=== PATIENT | female | born 1930 | race Caucasian/White ===

== ENCOUNTER 2016-05-24 11:50 | Inpatient (IN) | payer OTHER ==
[2016-05-24 12:03] VITALS: BMI 29.0
[2016-05-24 13:10] LABS: CALCIUM 9.2 mg/dL (8.5-10.1); CREATININE 1.83 mg/dL (0.55-1.02)
[2016-05-24 13:15] LABS: ALBUMIN 3.1 g/dL (3.4-5.0); BASOPHILS # (AUTO) 0.1 X10^3/uL (0.0-0.1); BASOPHILS % (AUTO) 0.4 % (0.2-1.0); COR CA(FOR HYPOALB) 9.9 mg/dL (8.5-10.1); EOSINOPHILS # (AUTO) 0.2 x10^3/uL (0.0-0.2); EOSINOPHILS % (AUTO) 0.8 % (0.9-2.9); HEMATOCRIT 30.9 % (36.0-47.0); HEMOGLOBIN 10.3 g/dL (12.0-16.0); LYMPHOCYTES # (AUTO) 1.4 X10^3/uL (1.3-2.9); MEAN CORPUSCULAR HEMOGLOBIN 28.9 pg (27.0-34.0); MEAN CORPUSCULAR HGB CONC 33.4 g/dL (33.0-35.0); MEAN CORPUSCULAR VOLUME 86.3 fL (80.0-100.0); MEAN PLATELET VOLUME 8.6 fL (7.4-11.0); MONOCYTES # (AUTO) 1.8 x10^3/uL (0.3-0.8); MONOCYTES % (AUTO) 6.4 % (0.0-13.0); NEUTROPHILS # (AUTO) 25.1 x10^3/uL (2.2-4.8); NEUTROPHILS % (AUTO) 87.4 % (42.0-75.0); PLATELET COUNT 336 X10^3/uL (150.0-450.0); RED BLOOD COUNT 3.58 X10^6/uL (3.5-5.4); RED CELL DISTRIBUTION WIDTH 13.7 % (11.6-16.5); TOTAL PROTEIN 7.5 g/dL (6.4-8.2)
[2016-05-24] MEDS ORDERED: DUONEB 0.5 MG/3 MG ONE (13:22)
[2016-05-24 13:25] LABS: WHITE BLOOD COUNT 28.8 X10^3/uL (3.6-10.0)
[2016-05-24 13:26] LABS: BAND NEUTROPHILS % 11 % (0-10); PLATELET MORPHOLOGY COMMENT NORMAL (NORMAL)
--- NOTE | 2016-05-24 13:28 | DR.GENAD ---
HPI - PCP Primary Care Physician: MARGO TSANG - HPI Comment HPI Comment: HISTORY BELOW. - Complaint/Symptoms Chief Complaint Doctors Comments: PATIENT HAVE COUGH, CONGESTION, RESPIRATORY DISTRESS AND FEVER ON AND OFF FOR 3 WEEKS. CURRENTLY ON AUGMENTIN AND TESSALON PERLES BUT SYMTOMS GETTING WORSE. Chief Complaint:: C/C/C, WEAKNESS X 3 WEEKS, DIARRHEA - Nurses notes reviewed Nurses Notes Review: Yes - Source History Provided: Patient - Mode of Arrival Mode of Arrival: Ambulatory - Timing Onset of Chief Complaint: 05/03/16 Came on: Gradually - Duration Duration: Constant Duration: Days PMH - PMH Past Medical History: Yes Past Medical History: Diabetes, Dyslipidemia, Hypertension Past Surgical History: Yes Surgical History: Appendectomy, Cholecystectomy, Hysterectomy Past Surgical History Comment: PACEMAKER - Family History History of Family Medical Conditions: Yes Family Medical History: Diabetes Mellitus, Hypertension - Social History Does patient currently use any type of tobacco product: No Have you used tobacco products in the last 12 months: No Type of Tobacco Use: None Does any household member use tobacco: No Alcohol Use: None Do you use any recreational Drugs:: No Lives With: Family Lives Where: Home - infectious screening In the last 2 months have you had wt loss of >10#?: NO Have you had fever, night sweats or hemotysis?: No Have you traveled outside the country in the last 6 months?: No Isolation: Standard ROS - Review of Systems Constitutional: Chills, Fever, Weakness, Fatigue Eyes: No Symptoms Reported. negative: Eye Pain, Discharge ENTM: Nose Discharge, Nose Congestion. negative: Ear Pain, Throat Pain Respiratoy: Productive Cough, Short of Breath, Wheezing. negative: Hemoptysis Cardiovascular: Chest Pain Gastrointestinal/Abdominal: No Symptoms Reported Genitourinary: No Symptoms Reported Neurological: Headache, Weakness, Dizziness Musculoskeletal: Muscle Pain Integumentary: No Symptoms Reported Hematologic/Lymphatic: No Symptoms Reported Endocrine: No Symptoms Reported All Other Systems: Reviewed and Negative PE - Vital Signs Vitals: Temperature 98.0 F Pulse Rate 66 Respiratory Rate 16 Blood Pressure 129/80 O2 Sat by Pulse Oximetry 95 - General Limitations: No Limitations General Appearance: Alert - Head Head Exam: Normal Inspection - Eyes Eye exam: Normal Appearance - ENT ENT Exam: Normal External Ear Exam External Ear Exam: Normal External Inspection TM/Canal Exam: Bilateral Normal Nose Exam: Normal Nose Exam Mouth Exam: Normal Inspection Throat Exam: Normal Inspection - Neck Neck Exam: Normal Inspection - Chest Chest Inspection: Symmetric Chest Wall Rise - Respiratory Respiratory Exam: Respiratory Distress Respiratory Exam: Bilateral Wheezing, Bilateral Rales, Bilateral Rhonchi, Upper Rhonchi, Lower Wheezing, Lower Rales, Lower Rhonchi - Cardiovascular Cardiovascular Exam: Regular Rate, Normal Rhythm, Normal Heart Sounds - Abdominal Exam Abdominal Exam: Normal Bowel Sounds, Soft. negative: Tenderness - Extremities Extremities Exam: Normal Inspection - Back Back Exam: Normal Inspection - Neurologic Neurological Exam: Alert, Oriented X3, CN II-XII Intact, Reflexes Normal. negative: Motor Sensory Deficit - Psychiatric Psychiatric Exam: Anxious - Skin Skin Exam: Normal Color MDM - Differential Diagnosis Differential Diagnosis: RESPIRATORY DISTRESS PNEUMONIA, BRONCHITIS Course - Treatment Treatment: SEE ORDERS - Consultation Consultation Comments: DISCUSS PATIENT WITH DR. HUBBARD. HE WILL ADMIT PATIENT. - Education/Counseling Education/Counseling: Patient, Education Educated On: Treatment, Diagnosis ROR - Labs Reviewed Laboratory Results Reviewed?: Yes Result Diagrams: 05/24/16 12:55 05/24/16 12:55 Laboratory: Sodium 126 mmol/L (136-145) L 05/24/16 12:55 Corrected Sodium 131 mmol/L (136-145) L 05/24/16 12:55 Potassium 4.6 mmol/L (3.5-5.1) 05/24/16 12:55 Chloride 89 mmol/L (98-107) L 05/24/16 12:55 Carbon Dioxide 26.0 mmol/L (21-32) 05/24/16 12:55 BUN 44 mg/dL (7-18) H 05/24/16 12:55 Creatinine 1.83 mg/dL (0.55-1.02) H 05/24/16 12:55 Est GFR (MDRD) Af Amer 34 (>60) L 05/24/16 12:55 Est GFR (MDRD) Non-Af 28 (>60) L 05/24/16 12:55 Glucose 317 mg/dL (65-99) H 05/24/16 12:55 Calcium 9.2 mg/dL (8.5-10.1) 05/24/16 12:55 Corrected Calcium 9.9 mg/dL (8.5-10.1) 05/24/16 12:55 Total Bilirubin 0.80 mg/dL (0.2-1.0) 05/24/16 12:55 AST 29 Units/L (15-37) 05/24/16 12:55 ALT 30 Units/L (12-78) 05/24/16 12:55 Alkaline Phosphatase 130 Units/L (46-116) H 05/24/16 12:55 Total Protein 7.5 g/dL (6.4-8.2) 05/24/16 12:55 Albumin 3.1 g/dL (3.4-5.0) L 05/24/16 12:55 Globulin 4.4 g/dL (2.5-4.5) 05/24/16 12:55 Albumin/Globulin Ratio 0.7 Ratio (1.1-2.1) L 05/24/16 12:55 - XRAY XRAY Interpreted by: Radiologist XRAY Findings: REPORT DISCUSS WITH PATIENT. - EKG Rhythm: NSR (EKG NOTED) - Diagnosis Discharge Problem: Pneumonia of both lower lobes, Respiratory distress - Discharge Plan Disposition: ADMITTED INPATIENT Condition: Stable - Follow ups/Referrals - Instructions
--- NOTE | 2016-05-24 13:45 | RAD ---
HISTORY: Cough, cold, congestion Study: Two view chest Comparison: None Findings: There are hazy bibasilar lower lobe opacities. No effusion or pneumothorax. The cardiac and mediasti nal contours are within normal limits. The soft tissues are unremarkable. There is a dual chamber p acemaker in place. IMPRESSION: 1. Bibasilar infiltrates that may represent pneumonia in the appropriate clinical setting. Reported By:
[2016-05-24] MEDS ORDERED: DUONEB 0.5 MG/3 MG NEB ONE (13:53)
[2016-05-24 14:04] LABS: B-TYPE NATRIURETIC PEPTIDE 325 pg/mL (0-79)
[2016-05-24] MEDS ORDERED: ROCEPHIN VIAL 1 GM ONE (14:06)
[2016-05-24] MEDS ORDERED: NS 50 ML IV + SPIKE MINIBAG* 50 ML IV ONE (14:06)
[2016-05-24] MEDS ORDERED: NS 1/2 1000 ML IV 1,000 ML IV ONE (14:06)
[2016-05-24] MEDS: NS 1/2 1000 ML IV 1,000 ML IV SCH (14:14)
[2016-05-24] MEDS: ROCEPHIN VIAL 1 GM 1 GM in NS 50 ML IV + SPIKE MINIBAG* 50 ML IV ONE ×2 (14:14→14:18)
[2016-05-24 14:25] LABS: CKMB % 3.6 % (<4); CREATINE KINASE 267 Units/L (26-192); TROPONIN I < 0.02 ng/mL (0-1.5)
[2016-05-24 14:27] LABS: CREATINE KINASE MB 9.5 ng/mL (0-4.0)
[2016-05-24] MEDS: DUONEB 0.5 MG/3 MG NEB SCH ×2 (16:35→20:20)
[2016-05-24 16:54] LABS: BILIRUBIN,URINE NEGATIVE (NEGATIVE); BLOOD/HEMOGLOBIN,URINE NEGATIVE (NEGATIVE); GLUCOSE, URINE NEGATIVE (NEGATIVE); KETONES,URINE 1+ (NEGATIVE); LEUKOCYTE ESTERASE ,URINE 1+ (NEGATIVE); NITRITES,URINE NEGATIVE (NEGATIVE); PROTEIN,URINE 2+ (NEGATIVE); UROBILINOGEN,URINE 1+ (NORMAL)
[2016-05-24 17:07] LABS: APPEARANCE,URINE HAZY (CLEAR); BACTERIA,URINE TRACE /HPF (NEGATIVE); COLOR,URINE YELLOW (YELLOW); RBC,URINE 0-2 /HPF (NEGATIVE); SQUAMOUS EPITHELIAL CELL,UR FEW /HPF (NEGATIVE)
[2016-05-24] MEDS: ROBITUSSIN DM PO SCH ×2 (17:12→20:52)
[2016-05-24] MEDS: HUMULIN R SC PRN ×2 (17:44→20:52)
[2016-05-24] MEDS ORDERED: MAALOX or MYLANTA PO PRN (20:09)
[2016-05-24] MEDS: LEVEMIR SC SCH (20:14)
[2016-05-24] MEDS: SNACK - Diabetic Appropriate PO SCH (20:14)
[2016-05-24] MEDS: LOVAZA PO SCH (20:59)
[2016-05-24] MEDS ORDERED: [UNRECOGNIZED DRUG - OTHER] PO SCH (22:00)
[2016-05-25] MEDS: DUONEB 0.5 MG/3 MG NEB SCH ×6 (00:37→20:37)
[2016-05-25] MEDS ORDERED: NS 1/2 1000 ML IV 1,000 ML IV ONE (01:28)
[2016-05-25] MEDS: NS 1/2 1000 ML IV 1,000 ML IV SCH (02:29)
[2016-05-25] MEDS: LOVAZA PO SCH ×3 (05:50→21:23)
[2016-05-25] MEDS: HUMULIN R SC PRN ×4 (05:53→21:25)
[2016-05-25 06:21] LABS: ALBUMIN 2.4 g/dL (3.4-5.0); CALCIUM 8.5 mg/dL (8.5-10.1); CARBON DIOXIDE 22.3 mmol/L (21-32); COR CA(FOR HYPOALB) 9.8 mg/dL (8.5-10.1); CREATININE 1.8 mg/dL (0.55-1.02); TOTAL PROTEIN 6.5 g/dL (6.4-8.2)
[2016-05-25 06:23] LABS: BASOPHILS # (AUTO) 0.1 X10^3/uL (0.0-0.1); BASOPHILS % (AUTO) 0.4 % (0.2-1.0); EOSINOPHILS # (AUTO) 0.3 x10^3/uL (0.0-0.2); EOSINOPHILS % (AUTO) 1.2 % (0.9-2.9); HEMATOCRIT 28.4 % (36.0-47.0); HEMOGLOBIN 9.3 g/dL (12.0-16.0); LYMPHOCYTES # (AUTO) 2.3 X10^3/uL (1.3-2.9); LYMPHOCYTES % (AUTO) 8.6 % (21.0-51.0); MEAN CORPUSCULAR HEMOGLOBIN 28.8 pg (27.0-34.0); MEAN CORPUSCULAR HGB CONC 32.9 g/dL (33.0-35.0); MEAN CORPUSCULAR VOLUME 87.6 fL (80.0-100.0); MEAN PLATELET VOLUME 8.7 fL (7.4-11.0); MONOCYTES % (AUTO) 7.5 % (0.0-13.0); NEUTROPHILS # (AUTO) 21.6 x10^3/uL (2.2-4.8); NEUTROPHILS % (AUTO) 82.3 % (42.0-75.0); PLATELET COUNT 302 X10^3/uL (150.0-450.0); RED BLOOD COUNT 3.24 X10^6/uL (3.5-5.4); RED CELL DISTRIBUTION WIDTH 13.3 % (11.6-16.5)
[2016-05-25 06:32] LABS: WHITE BLOOD COUNT 26.2 X10^3/uL (3.6-10.0)
[2016-05-25 06:42] LABS: BAND NEUTROPHILS % 7 % (0-10)
[2016-05-25 06:43] LABS: PLATELET MORPHOLOGY COMMENT NORMAL (NORMAL)
[2016-05-25] MEDS: ROBITUSSIN DM PO SCH ×5 (08:48→21:23)
[2016-05-25] MEDS: VITAMIN C PO SCH (08:49)
[2016-05-25] MEDS: NORVASC TAB 5 MG PO SCH (08:49)
[2016-05-25] MEDS ORDERED: TYGACIL 50 MG VIAL 50 MG in NS 100 ML IV 100 ML IV SCH (09:00)
[2016-05-25] MEDS ORDERED: ROCEPHIN VIAL 1 GM 1 GM in NS 50 ML IV + SPIKE MINIBAG* 50 ML IV SCH (09:00)
[2016-05-25] MEDS ORDERED: TYGACIL 50 MG VIAL 100 MG in NS 100 ML IV 100 ML IV ONE (09:42)
[2016-05-25] MEDS ORDERED: [UNRECOGNIZED DRUG - OTHER] PO SCH (09:45)
[2016-05-25] MEDS ORDERED: LOMOTIL PO PRN (09:55)
[2016-05-25] MEDS: NS 1000 ML 1,000 ML IV SCH ×3 (10:30→21:21)
[2016-05-25] MEDS: ASPIRIN EC 81 MG PO SCH (11:26)
[2016-05-25] MEDS: SNACK - Diabetic Appropriate PO SCH (20:40)
[2016-05-25] MEDS: FLONASE NASAL SPRAY ENOSTRIL SCH (21:19)
[2016-05-25] MEDS: LEVEMIR SC SCH (21:23)
[2016-05-25] MEDS: TYGACIL 50 MG VIAL 50 MG in NS 100 ML IV 100 ML IV SCH (21:25)
[2016-05-25] MEDS: TUSSIONEX PENNKINETIC SUSP PO PRN (23:16)
[2016-05-26] MEDS: DUONEB 0.5 MG/3 MG NEB SCH ×6 (01:29→20:19)
[2016-05-26] MEDS: NS 1000 ML 1,000 ML IV SCH ×4 (03:23→15:08)
[2016-05-26] MEDS: LOVAZA PO SCH ×3 (05:14→21:20)
[2016-05-26 06:27] LABS: ALBUMIN 2.2 g/dL (3.4-5.0); CARBON DIOXIDE 21.1 mmol/L (21-32); COR CA(FOR HYPOALB) 9.4 mg/dL (8.5-10.1); CREATININE 1.18 mg/dL (0.55-1.02)
[2016-05-26 06:33] LABS: BASOPHILS # (AUTO) 0.2 X10^3/uL (0.0-0.1); BASOPHILS % (AUTO) 0.7 % (0.2-1.0); EOSINOPHILS # (AUTO) 0.6 x10^3/uL (0.0-0.2); EOSINOPHILS % (AUTO) 2.7 % (0.9-2.9); HEMATOCRIT 28.2 % (36.0-47.0); HEMOGLOBIN 9.4 g/dL (12.0-16.0); LYMPHOCYTES # (AUTO) 2.1 X10^3/uL (1.3-2.9); LYMPHOCYTES % (AUTO) 9.9 % (21.0-51.0); MEAN CORPUSCULAR HEMOGLOBIN 28.8 pg (27.0-34.0); MEAN CORPUSCULAR HGB CONC 33.4 g/dL (33.0-35.0); MEAN CORPUSCULAR VOLUME 86.1 fL (80.0-100.0); MEAN PLATELET VOLUME 8.4 fL (7.4-11.0); MONOCYTES % (AUTO) 9.1 % (0.0-13.0); NEUTROPHILS # (AUTO) 16.8 x10^3/uL (2.2-4.8); NEUTROPHILS % (AUTO) 77.6 % (42.0-75.0); PLATELET COUNT 332 X10^3/uL (150.0-450.0); RED BLOOD COUNT 3.27 X10^6/uL (3.5-5.4)
[2016-05-26 06:44] LABS: WHITE BLOOD COUNT 21.6 X10^3/uL (3.6-10.0)
[2016-05-26 07:41] LABS: BAND NEUTROPHILS % 8 % (0-10); PLATELET MORPHOLOGY COMMENT NORMAL (NORMAL)
--- NOTE | 2016-05-26 08:35 | RAD ---
HISTORY: Pneumonia Study: Two view chest Comparison: 05/24/2016 Findings: There are persistent bibasilar alveolar infiltrates. No pneumothorax or pleural effusion. Stable pac emaker. The cardiac and mediastinal contours are within normal limits. The soft tissues are unremar kable. IMPRESSION: 1. Persistent bibasilar alveolar infiltrates suggestive of pneumonia. Reported By:
[2016-05-26] MEDS: TYGACIL 50 MG VIAL 50 MG in NS 100 ML IV 100 ML IV SCH ×2 (08:56→21:21)
[2016-05-26] MEDS: NORVASC TAB 5 MG PO SCH (08:57)
[2016-05-26] MEDS: VITAMIN C PO SCH (08:57)
[2016-05-26] MEDS: ROBITUSSIN DM PO SCH ×4 (08:57→21:21)
[2016-05-26] MEDS: ASPIRIN EC 81 MG PO SCH (08:57)
[2016-05-26] MEDS: FLONASE NASAL SPRAY ENOSTRIL SCH ×2 (08:59→21:22)
[2016-05-26] MEDS ORDERED: TORADOL 30 MG VIAL IVP PRN (09:39)
[2016-05-26] MEDS: ZANTAC PO SCH ×2 (10:42→21:21)
[2016-05-26] MEDS: HYZAAR 50/12.5 MG PO SCH (11:53)
[2016-05-26] MEDS: HUMULIN R SC PRN ×2 (12:06→21:23)
[2016-05-26] MEDS: SNACK - Diabetic Appropriate PO SCH (20:25)
[2016-05-26] MEDS: LEVEMIR SC SCH (21:22)
[2016-05-27] MEDS: DUONEB 0.5 MG/3 MG NEB SCH ×6 (00:33→21:10)
[2016-05-27] MEDS: NS 1000 ML 1,000 ML IV SCH ×4 (05:13→17:13)
[2016-05-27] MEDS: LOVAZA PO SCH ×4 (05:15→20:59)
[2016-05-27] MEDS: TUSSIONEX PENNKINETIC SUSP PO PRN (05:50)
[2016-05-27 06:06] LABS: BASOPHILS # (AUTO) 0.2 X10^3/uL (0.0-0.1); EOSINOPHILS # (AUTO) 0.6 x10^3/uL (0.0-0.2); EOSINOPHILS % (AUTO) 3.7 % (0.9-2.9); HEMATOCRIT 26.9 % (36.0-47.0); HEMOGLOBIN 9.1 g/dL (12.0-16.0); LYMPHOCYTES % (AUTO) 12.7 % (21.0-51.0); MEAN CORPUSCULAR HEMOGLOBIN 29.1 pg (27.0-34.0); MEAN CORPUSCULAR HGB CONC 33.9 g/dL (33.0-35.0); MEAN CORPUSCULAR VOLUME 85.7 fL (80.0-100.0); MEAN PLATELET VOLUME 8.3 fL (7.4-11.0); MONOCYTES # (AUTO) 1.6 x10^3/uL (0.3-0.8); MONOCYTES % (AUTO) 10.2 % (0.0-13.0); NEUTROPHILS # (AUTO) 11.6 x10^3/uL (2.2-4.8); NEUTROPHILS % (AUTO) 72.4 % (42.0-75.0); PLATELET COUNT 348 X10^3/uL (150.0-450.0); RED BLOOD COUNT 3.14 X10^6/uL (3.5-5.4); RED CELL DISTRIBUTION WIDTH 14.2 % (11.6-16.5)
[2016-05-27] MEDS ORDERED: VANCOMYCIN HCL 1 GM VIAL ONE (07:19)
[2016-05-27] MEDS ORDERED: NS 250 ML IV 250 ML IV ONE (07:19)
[2016-05-27] MEDS ORDERED: VANCOMYCIN HCL 500 MG VIAL ONE (07:19)
[2016-05-27 07:26] LABS: ALBUMIN 2.2 g/dL (3.4-5.0); CALCIUM 8.1 mg/dL (8.5-10.1); CARBON DIOXIDE 19.7 mmol/L (21-32); COR CA(FOR HYPOALB) 9.5 mg/dL (8.5-10.1); CREATININE 1.15 mg/dL (0.55-1.02); TOTAL PROTEIN 5.8 g/dL (6.4-8.2)
[2016-05-27 07:44] LABS: BAND NEUTROPHILS % 13 % (0-10); METAMYELOCYTES % 1
[2016-05-27 07:45] LABS: PLATELET MORPHOLOGY COMMENT NORMAL (NORMAL)
[2016-05-27] MEDS: TYGACIL 50 MG VIAL 50 MG in NS 100 ML IV 100 ML IV SCH ×2 (09:18→20:52)
[2016-05-27] MEDS: HYZAAR 50/12.5 MG PO SCH (09:19)
[2016-05-27] MEDS: ROBITUSSIN DM PO SCH ×4 (09:19→20:54)
[2016-05-27] MEDS: VITAMIN C PO SCH (09:19)
[2016-05-27] MEDS: ALBUMIN HUMAN 25%- 100ML 100 ML IV SCH (09:19)
[2016-05-27] MEDS: NORVASC TAB 5 MG PO SCH (09:20)
[2016-05-27] MEDS: FLONASE NASAL SPRAY ENOSTRIL SCH ×2 (09:20→20:56)
[2016-05-27] MEDS: ASPIRIN EC 81 MG PO SCH (09:20)
[2016-05-27] MEDS: ZANTAC PO SCH ×2 (09:20→20:54)
[2016-05-27] MEDS: HUMULIN R SC PRN ×2 (17:08→20:55)
[2016-05-27] MEDS: SNACK - Diabetic Appropriate PO SCH (20:12)
[2016-05-27] MEDS: LEVEMIR SC SCH (20:55)
[2016-05-28] MEDS: NS 1000 ML 1,000 ML IV SCH ×6 (00:06→22:11)
[2016-05-28] MEDS: DUONEB 0.5 MG/3 MG NEB SCH ×7 (01:29→21:11)
[2016-05-28 05:30] LABS: BASOPHILS # (AUTO) 0.1 X10^3/uL (0.0-0.1); BASOPHILS % (AUTO) 0.9 % (0.2-1.0); EOSINOPHILS # (AUTO) 0.8 x10^3/uL (0.0-0.2); HEMATOCRIT 25.1 % (36.0-47.0); HEMOGLOBIN 8.7 g/dL (12.0-16.0); LYMPHOCYTES % (AUTO) 14.1 % (21.0-51.0); MEAN CORPUSCULAR HEMOGLOBIN 29.4 pg (27.0-34.0); MEAN CORPUSCULAR HGB CONC 34.5 g/dL (33.0-35.0); MEAN CORPUSCULAR VOLUME 85.3 fL (80.0-100.0); MEAN PLATELET VOLUME 8.1 fL (7.4-11.0); MONOCYTES # (AUTO) 1.4 x10^3/uL (0.3-0.8); MONOCYTES % (AUTO) 10.3 % (0.0-13.0); NEUTROPHILS # (AUTO) 9.5 x10^3/uL (2.2-4.8); NEUTROPHILS % (AUTO) 68.7 % (42.0-75.0); PLATELET COUNT 306 X10^3/uL (150.0-450.0); RED BLOOD COUNT 2.94 X10^6/uL (3.5-5.4); RED CELL DISTRIBUTION WIDTH 13.8 % (11.6-16.5); WHITE BLOOD COUNT 13.8 X10^3/uL (3.6-10.0)
[2016-05-28 05:37] LABS: ALANINE AMINOTRANSFERASE 30 Units/L (12-78); ALBUMIN 2.4 g/dL (3.4-5.0); ALKALINE PHOSPHATASE 113 Units/L (46-116); ASPARTATE AMINO TRANSFERASE 30 Units/L (15-37); BLOOD UREA NITROGEN 32 mg/dL (7-18); CALCIUM 8.1 mg/dL (8.5-10.1); CARBON DIOXIDE 20.6 mmol/L (21-32); CHLORIDE 104 mmol/L (98-107); COR CA(FOR HYPOALB) 9.4 mg/dL (8.5-10.1); CREATININE 1.03 mg/dL (0.55-1.02); GLUCOSE 106 mg/dL (65-99); SODIUM 135 mmol/L (136-145); TOTAL PROTEIN 5.5 g/dL (6.4-8.2); eGFR BLACK RACES > 60 (>60); eGFR NON BLACK RACES 54 (>60)
[2016-05-28 06:03] LABS: PLATELET MORPHOLOGY COMMENT NORMAL (NORMAL)
[2016-05-28] MEDS: LOVAZA PO SCH ×3 (06:23→22:09)
--- NOTE | 2016-05-28 08:44 | RAD ---
Chest, two views Indication: Pneumonia Comparison: 05/26/2016 Findings: Bilateral lower lobe airspace disease is mildly worsened. The heart size is normal with st able pulmonary arterial enlargement, suggestive for pulmonary artery hypertension. The upper lungs a re clear. No pleural effusion or pneumothorax identified. Impression: Worsened bilateral lower lobe pneumonia. Reported By:
[2016-05-28] MEDS: ALBUMIN HUMAN 25%- 100ML 100 ML IV SCH (09:03)
[2016-05-28] MEDS: ROBITUSSIN DM PO SCH ×4 (09:03→22:10)
[2016-05-28] MEDS: VITAMIN C PO SCH (09:04)
[2016-05-28] MEDS: ZANTAC PO SCH ×2 (09:04→22:10)
[2016-05-28] MEDS: TYGACIL 50 MG VIAL 50 MG in NS 100 ML IV 100 ML IV SCH ×2 (09:04→22:10)
[2016-05-28] MEDS: NORVASC TAB 5 MG PO SCH (09:04)
[2016-05-28] MEDS: ASPIRIN EC 81 MG PO SCH (09:04)
[2016-05-28] MEDS: HYZAAR 50/12.5 MG PO SCH (09:04)
[2016-05-28] MEDS: FLONASE NASAL SPRAY ENOSTRIL SCH ×2 (09:05→22:11)
[2016-05-28] MEDS ORDERED: LEVEMIR SC SCH (09:29)
[2016-05-28] MEDS ORDERED: NORVASC TAB 5 MG PO SCH (09:29)
[2016-05-28] MEDS: HUMULIN R SC PRN (17:30)
[2016-05-28] MEDS: SNACK - Diabetic Appropriate PO SCH (20:20)
[2016-05-29] MEDS: DUONEB 0.5 MG/3 MG NEB SCH ×3 (00:57→08:05)
[2016-05-29] MEDS: NS 1000 ML 1,000 ML IV SCH ×2 (03:30→09:09)
[2016-05-29] MEDS: LOVAZA PO SCH ×2 (06:07→14:07)
[2016-05-29] MEDS: HUMULIN R SC PRN (06:18)
[2016-05-29 07:42] LABS: POTASSIUM STOOL 40; SODIUM STOOL 24
[2016-05-29 07:43] LABS: CHLORIDE STOOL < 20
[2016-05-29] MEDS: TYGACIL 50 MG VIAL 50 MG in NS 100 ML IV 100 ML IV SCH (09:09)
[2016-05-29] MEDS: ROBITUSSIN DM PO SCH ×2 (09:10→12:49)
[2016-05-29] MEDS: HYZAAR 50/12.5 MG PO SCH (09:10)
[2016-05-29] MEDS: VITAMIN C PO SCH (09:10)
[2016-05-29] MEDS: ASPIRIN EC 81 MG PO SCH (09:11)
[2016-05-29] MEDS: ZANTAC PO SCH (09:11)
[2016-05-29] MEDS: ALBUMIN HUMAN 25%- 100ML 100 ML IV SCH (09:21)
[2016-05-29] MEDS: FLONASE NASAL SPRAY ENOSTRIL SCH (09:22)
[2016-05-29 10:03] LABS: ALANINE AMINOTRANSFERASE 42 Units/L (12-78); ALBUMIN 3.5 g/dL (3.4-5.0); ALKALINE PHOSPHATASE 117 Units/L (46-116); ASPARTATE AMINO TRANSFERASE 36 Units/L (15-37); BASOPHILS # (AUTO) 0.1 X10^3/uL (0.0-0.1); BASOPHILS % (AUTO) 0.9 % (0.2-1.0); BLOOD UREA NITROGEN 24 mg/dL (7-18); CALCIUM 8.6 mg/dL (8.5-10.1); CARBON DIOXIDE 20.7 mmol/L (21-32); CHLORIDE 103 mmol/L (98-107); COR NA(FOR HYPERGLY) 137 mmol/L (136-145); CREATININE 1.11 mg/dL (0.55-1.02); EOSINOPHILS # (AUTO) 0.4 x10^3/uL (0.0-0.2); EOSINOPHILS % (AUTO) 3.6 % (0.9-2.9); GLUCOSE 131 mg/dL (65-99); HEMATOCRIT 26.8 % (36.0-47.0); HEMOGLOBIN 9.2 g/dL (12.0-16.0); LYMPHOCYTES # (AUTO) 1.6 X10^3/uL (1.3-2.9); LYMPHOCYTES % (AUTO) 13.5 % (21.0-51.0); MEAN CORPUSCULAR HEMOGLOBIN 29.6 pg (27.0-34.0); MEAN CORPUSCULAR HGB CONC 34.4 g/dL (33.0-35.0); MEAN CORPUSCULAR VOLUME 85.8 fL (80.0-100.0); MEAN PLATELET VOLUME 7.9 fL (7.4-11.0); MONOCYTES # (AUTO) 0.9 x10^3/uL (0.3-0.8); MONOCYTES % (AUTO) 7.4 % (0.0-13.0); NEUTROPHILS # (AUTO) 8.9 x10^3/uL (2.2-4.8); NEUTROPHILS % (AUTO) 74.6 % (42.0-75.0); PLATELET COUNT 297 X10^3/uL (150.0-450.0); RED BLOOD COUNT 3.12 X10^6/uL (3.5-5.4); RED CELL DISTRIBUTION WIDTH 14.2 % (11.6-16.5); SODIUM 136 mmol/L (136-145); TOTAL PROTEIN 6.5 g/dL (6.4-8.2); WHITE BLOOD COUNT 11.9 X10^3/uL (3.6-10.0); eGFR BLACK RACES > 60 (>60); eGFR NON BLACK RACES 50 (>60)
[2016-05-29 10:30] LABS: PLATELET MORPHOLOGY COMMENT NORMAL (NORMAL)
[2016-05-29 12:21] VITALS: BP 162/70
== END 2016-05-29 14:05 | disposition home or self-care (01) | DRG 194 ==
LOC: ER 11:50 → ICU 15:10 → OBS 15:10 → MED/SURG 05-25 14:35
PROVIDERS: ADMIT Obstetrics & Gynecology Obstetrics; ATTEND Obstetrics & Gynecology Obstetrics
DX: J16.8 Pneumonia due to other specified infectious organisms (principal); R06.09 Other forms of dyspnea; R50.9 Fever, unspecified; R53.1 Weakness; R19.7 Diarrhea, unspecified; E11.65 Type 2 diabetes mellitus with hyperglycemia; E78.2 Mixed hyperlipidemia; R06.02 Shortness of breath; E87.1 Hypo-osmolality and hyponatremia; J01.80 Other acute sinusitis
CPT/HCPCS: 36415; 71020; 80053; 81001; 82270; 82438; 82550; 82553; 82705; 83880; 84302; 84484; 84999; 85025; 87040; 87045; 87070; 87205; 87493; 87899; 93005; 93010; 94640; 94760; 96365; 96367; 96374; 96375; 99284; A4222; P9047; 1956; J0696; J1815; J3370; J7620